=== PATIENT | female | born 1995 | race Caucasian/White ===

== ENCOUNTER 2023-01-17 16:27 | Emergency (ER) | payer OTHER ==
[~2023-01-17] VITALS: Wt 62.1 kg
[~2023-01-17 16:27] MED LIST: AVPAK AZITHROM250 M1 PO; BACTRIM DS 8001 TA1 PO; BIRTH CONTROL1 EAC1 PO; DEPO PROVER150 MG/M1 IM; DURICEF250 MG/5 M PO; KEFLEX500 MG PO; MACROBID100 M1 PO; NKHM; PRELONE5 MG/5 ML PO; ZOFRAN ODT4 MG SL
[2023-01-17 18:48] LABS: BASO % 0.5 % (0.0-1.0); BILIRUBIN Negative (Negative); BLOOD Negative (Negative); CLARITY Clear (Clear); COLOR Yellow (Yellow); EOS # 0.2 10*3/uL (0.0-0.4); EOS % 2.6 % (1.0-4.0); GLUCOSE Negative (Negative); HEMATOCRIT 41.1 % (37.0-47.0); KETONE Negative (Negative); LEUKO ESTERASE Negative (Negative); LYMPH # 1.9 10*3/uL (1.3-4.4); LYMPH % 30.8 % (27.0-41.0); MEAN CORPUSCULAR HGB 29.2 pg (27.0-31.0); MEAN CORPUSCULAR HGB CONC 32.8 g/dl (33.0-37.0); MEAN PLATELET VOLUME 9.5 fl (9.6-12.3); MONO # 0.4 10*3/uL (0.1-1.0); MONO % 6.7 % (3.0-9.0); NEUT # 3.6 10*3/uL (2.3-7.9); NEUT % 59.2 % (47.0-73.0); NITRITE Negative (Negative); PLATELET COUNT AUTOMATED 251 10*3/uL (130-400); RED BLOOD COUNT 4.62 10*6/uL (4.10-5.10); RED CELL DISTRI WIDTH 13.1 % (0-14.5); SPECIFIC GRAVITY >= 1.030 (1.001-1.030); WHITE BLOOD COUNT 6.1 10*3/uL (4.8-10.8)
[2023-01-17 18:58] LABS: BACTERIA 2+
[2023-01-17 18:59] LABS: ACT PARTIAL THROMBO TIME 25.4 SECONDS (20.0-32.1); RBC 0-2 rbc/hpf (0-2)
[2023-01-17 19:03] LABS: ALKALINE PHOSPHATASE 53 U/L (46-116); BETA-HCG, QUANT < 3.0 mIU/mL (0-10); BUN 14 mg/dl (9-23); CHLORIDE 106 mmol/L (98-107); LIPASE 36 U/L (12-53); POTASSIUM 3.6 mmol/L (3.4-5.1); SGPT/ALT 22 U/L (10-49)
== END 2023-01-17 21:44 | disposition home or self-care (01) ==
LOC: ED 16:27
PROVIDERS: Physician Assistant
DX: R14.0 Abdominal distension (gaseous) (principal); R11.2 Nausea with vomiting, unspecified; Z98.890 Other specified postprocedural states

== ENCOUNTER 2023-06-30 22:15 | Emergency (ER) | payer OTHER ==
[~2023-06-30] VITALS: Ht 167.6 cm; Wt 54.4 kg
== END 2023-07-01 00:15 | disposition home or self-care (01) ==
LOC: ED 22:15
DX: R51.9 Headache, unspecified (principal); F17.210 Nicotine dependence, cigarettes, uncomplicated; Z88.8 Allergy status to other drugs, medicaments and biological substances; Y04.2XXA Assault by strike against or bumped into by another person, initial encounter; Y93.89 Activity, other specified; Y92.89 Other specified places as the place of occurrence of the external cause; Y99.8 Other external cause status

== ENCOUNTER → 2024-02-27 | Outpatient (CLI) | payer OTHER | END | disposition home or self-care (01) | LOC: RAD 14:04 | PROVIDERS: ATTEND Pediatrics | DX: M43.16 Spondylolisthesis, lumbar region (principal) ==

== ENCOUNTER 2025-01-20 19:27 | Emergency (ER) | payer OTHER ==
[~2025-01-20] VITALS: Ht 167.6 cm; Wt 61.2 kg
[2025-01-20] MEDS ORDERED: Tdap Vaccine 0.5 ML SYR (Adult Vaccine) IM ONE (20:15)
[2025-01-20] MEDS ORDERED: NAPROSYN500 MG PO (22:43)
[2025-01-20] MEDS ORDERED: AMOX-CLAV 875-1 EACH PO (22:44)
[2025-01-20] MEDS ORDERED: Amoxicillin/Clavulanate Pota 875 MG TAB PO ONE (22:45)
== END 2025-01-20 22:59 | disposition home or self-care (01) ==
LOC: ED 19:27
DX: S16.1XXA Strain of muscle, fascia and tendon at neck level, initial encounter (principal); S33.5XXA Sprain of ligaments of lumbar spine, initial encounter; S61.412A Laceration without foreign body of left hand, initial encounter; S60.511A Abrasion of right hand, initial encounter; Y09 Assault by unspecified means; Y93.89 Activity, other specified; Y92.89 Other specified places as the place of occurrence of the external cause; Y99.8 Other external cause status